=== PATIENT | female | born 1945 | race Two or more races ===

== ENCOUNTER 2017-03-31 19:19 | Inpatient (IN) | payer MEDICARE, OTHER ==
[~2017-03-31] VITALS: Ht 165.1 cm; Wt 82.7 kg
[2017-03-31] MEDS ORDERED: PLEASE ENTER HEIGHT AND WEIGHT MC SCH (20:00)
[2017-03-31] MEDS ORDERED: PLEASE ENTER ALLERGIES MC SCH ×2 (20:00)
[2017-03-31] MEDS ORDERED: SODIUM CHLORIDE FLUSH 10ML SYR IVF ONE (20:00)
[2017-03-31] MEDS ORDERED: ASPIRIN 81 MG TABLET CHEW PO ONE (20:00)
[2017-03-31] MEDS ORDERED: NITR0.4T8 SL ×2 (20:01→23:08)
[2017-03-31 20:07] LABS: HEMATOCRIT 35.8 % (34.6-47.8); HEMOGLOBIN 11.7 g/dL (11.7-16.4); WHITE BLOOD COUNT 9.4 x10^3/uL (3.4-10)
[2017-03-31] MEDS ORDERED: ASPIRIN 81 MG TABLET CHEW ONE (20:16)
[2017-03-31 20:18] LABS: BLOOD UREA NITROGEN 17 mg/dL (7-18)
[2017-03-31 20:27] LABS: IS PT STATUS REG ER OR PRE ER? YES
[2017-03-31] MEDS ORDERED: POTASSIUM CHLORIDE 40 MEQ in SODIUM CHLORIDE 0.9% 500 ML IV ONE (21:00)
[2017-03-31] MEDS: SODIUM CHLORIDE FLUSH 10ML SYR IVF SCH (21:17)
[2017-03-31] MEDS ORDERED: NICOTINE 21 MG/24 HR PATCH.TD24 TD SCH (21:30)
[2017-03-31] MEDS ORDERED: ACETAMINOPHEN 325 MG TABLET PO PRN (21:30)
[2017-03-31] MEDS ORDERED: POLYETHYLENE GLYCOL 17 GM PACKET PO PRN (21:30)
[2017-03-31] MEDS ORDERED: morphine SULFATE 10 MG/ML, 1ML IVPush PRN (21:30)
[2017-03-31] MEDS ORDERED: BISACODYL 10 MG SUPP PR PRN (21:30)
[2017-03-31] MEDS ORDERED: NITROGLYCERIN 0.4 MG BOTTLE (25 TABS) SL PRN (21:30)
[2017-03-31] MEDS ORDERED: ONDANSETRON 2MG/ML, 2ML IVPush PRN (21:30)
[2017-03-31] MEDS ORDERED: METO25TA2 PO (23:08)
[2017-03-31] MEDS ORDERED: CLOP75TA PO (23:08)
[2017-03-31] MEDS ORDERED: TIOT18CA INH (23:08)
[2017-03-31] MEDS ORDERED: APIX5TAB PO (23:08)
[2017-03-31] MEDS ORDERED: RANO500T2 PO (23:08)
[2017-03-31] MEDS ORDERED: LOSA25TA5 PO (23:08)
[2017-03-31] MEDS ORDERED: EZET10TA3 PO (23:08)
[2017-03-31] MEDS ORDERED: BENZ100C4 PO (23:08)
[2017-03-31] MEDS ORDERED: ROSU20TA PO (23:08)
[2017-03-31 23:13] VITALS: BP 151/83
[2017-04-01] MEDS ORDERED: ROSUVASTATIN 20 MG HOMEMEDPO SCH (01:00)
[2017-04-01] MEDS: METOPROLOL TARTRATE 25 MG TABLET PO SCH ×2 (01:00→09:00)
[2017-04-01] MEDS ORDERED: ELIQUIS MC SCH (01:00)
[2017-04-01] MEDS ORDERED: ELIQUIS 5 MG PO SCH (01:00)
[2017-04-01] MEDS: HEPARIN 5,000 UNITS/ML, 1ML SQ SCH ×2 (01:11→05:30)
[2017-04-01] MEDS: BENZONATATE 100 MG CAPSULE PO SCH ×2 (01:18→06:00)
[2017-04-01] MEDS: RANOLAZINE 500 MG TAB.ER.12H PO SCH ×2 (01:18→09:30)
[2017-04-01 02:00] VITALS: BP 153/77
[2017-04-01] MEDS ORDERED: IPRATROPIUM 0.5 MG/2.5 ML INHA NPPB SCH (02:30)
[2017-04-01 02:37] LABS: IS PT STATUS REG ER OR PRE ER? NO
[2017-04-01] MEDS ORDERED: PNEUMOCOCCAL 23 VACCINE IM-VACC ONE (04:30)
[2017-04-01 05:50] LABS: HEMATOCRIT 34.8 % (34.6-47.8); HEMOGLOBIN 11.3 g/dL (11.7-16.4); WHITE BLOOD COUNT 8.7 x10^3/uL (3.4-10)
[2017-04-01 06:13] LABS: ASPARTATE AMINO TRANSFERASE 10 U/L (15-37); BLOOD UREA NITROGEN 17 mg/dL (7-18)
[2017-04-01 08:21] LABS: IS PT STATUS REG ER OR PRE ER? NO
[2017-04-01] MEDS ORDERED: CLOPIDOGREL 75 MG TABLET PO SCH (09:00)
[2017-04-01] MEDS ORDERED: EZETIMIBE 10 MG TABLET PO SCH (09:00)
[2017-04-01] MEDS ORDERED: IPRATROPIUM 0.5 MG/2.5 ML INHA HHN SCH (09:00)
[2017-04-01] MEDS ORDERED: APIXABAN 5 MG TABLET PO SCH ×3 (09:00→21:00)
[2017-04-01] MEDS ORDERED: LOSARTAN 25MG TABLET PO SCH (09:00)
[2017-04-01] MEDS ORDERED: SENNA/DOCUSATE TABLET PO SCH (09:00)
[2017-04-01 09:20] VITALS: BP 141/85
[2017-04-01] MEDS: SODIUM CHLORIDE FLUSH 10ML SYR IVF SCH (09:30)
== END 2017-04-01 12:16 | disposition home or self-care (01) | DRG 311 ==
LOC: ED 20:40 → EDIP 20:42 → ED 20:52 → 5SO 21:59
PROVIDERS: ADMIT Internal Medicine; ATTEND Internal Medicine
DX: I24.9 Acute ischemic heart disease, unspecified (principal); D68.69 Other thrombophilia; I48.91 Unspecified atrial fibrillation; I10 Essential (primary) hypertension; E78.5 Hyperlipidemia, unspecified; F17.210 Nicotine dependence, cigarettes, uncomplicated; Z66 Do not resuscitate; I25.2 Old myocardial infarction; Z79.01 Long term (current) use of anticoagulants; Z95.5 Presence of coronary angioplasty implant and graft; Z88.1 Allergy status to other antibiotic agents; Z88.8 Allergy status to other drugs, medicaments and biological substances; Z88.5 Allergy status to narcotic agent; Z82.49 Family history of ischemic heart disease and other diseases of the circulatory system; Z79.899 Other long term (current) drug therapy
CPT/HCPCS: 36415; 71010; 80048; 80053; 82040; 83735; 83880; 84439; 84443; 84484; 85025; 85610; 90732; 93005; 96365; J3480; J7040